=== PATIENT | male | born 1960 | race Caucasian/White ===

== ENCOUNTER 2019-07-28 10:07 | Emergency (ER) | payer MEDICAID ==
[~2019-07-28] VITALS: Ht 182.9 cm; Wt 123.0 kg
[~2019-07-28 10:07] MED LIST: ALBU18HF INH; FLUT1AER INH; LEVE100S6 PO; PROP80TA PO
--- NOTE | 2019-07-28 10:16 | NUR ---
HUNG. REPORT RECEIVED FROM EMS. PT WAS FOUND BY PD AROUND [facility]. PT WAS DC FROM [facility] YESTERDAY D/T THE SAME REASON. PT HAS SI WITH PLANS(TAKING BUNCH OF MEDS OR CUTTING HIMSELF). PT'S AOX4. RESPS EVEN AND UNLABORED. NO MEDICAL COMPLAINS. VSS.
--- NOTE | 2019-07-28 10:18 | NUR ---
PT'S BELONGGINGS PUT INTO 2 BAGS AND PUT INTO THE LOCKER. ROOM SECURE.
--- NOTE | 2019-07-28 10:48 | NUR ---
URINAL AT BEDSIDE. PT AWARES OF UA. CLAY LARES PROVIDED.
[2019-07-28 10:50] LABS: BASOPHILS # (AUTO) 0.01 x10^3/uL (0-0.1); BASOPHILS % (AUTO) 0 % (0-1); EOSINOPHILS # (AUTO) 0.12 x10^3/uL (0-0.4); EOSINOPHILS % (AUTO) 2 % (1-7); LYMPHOCYTES # (AUTO) 1.05 x10^3/uL (1-3.4); LYMPHOCYTES % (AUTO) 14 % (22-44); MD NO; MEAN CORPUSCULAR HEMOGLOBIN 33.6 pg (27.5-34.5); MEAN CORPUSCULAR HGB CONC 33.4 g/dL (33.2-36.2); MEAN CORPUSCULAR VOLUME 100.6 fL (81-97); MEAN PLATELET VOLUME 8.8 fL (7.4-10.4); MONOCYTES # (AUTO) 0.49 x10^3/uL (0.2-0.8); MONOCYTES % (AUTO) 6 % (2-9); NEUTROPHILS # (AUTO) 5.92 x10^3/uL (1.8-6.8); NEUTROPHILS % (AUTO) 78 % (42-75); PLATELET COUNT 220 x10^3/uL (130-400); RED BLOOD COUNT 4.92 x10^6/uL (4.38-5.82); RED CELL DISTRIBUTION WIDTH 13.9 % (9.4-14.8)
[2019-07-28 11:00] LABS: ALANINE AMINOTRANSFERASE 29 U/L (12-78); ALBUMIN 3.5 g/dL (3.4-5.0); ANION GAP 8 mmol/L (5-15); CALCIUM 8.3 mg/dL (8.5-10.1); CHLORIDE 107 mmol/L (98-107); CREATININE 1.01 mg/dL (0.7-1.3); SALICYLATE LEVEL 2.7 mg/dL (2.8-20.0)
[2019-07-28 11:03] LABS: ALKALINE PHOSPHATASE 59 U/L (45-117); BILIRUBIN,TOTAL 0.8 mg/dL (0.2-1.0); TOTAL PROTEIN 7.2 g/dL (6.4-8.2)
--- NOTE | 2019-07-28 11:12 | NUR ---
patient report taken from LUIS F Samano. patient in bed, rails up. patient states he is really feeling depressed and suidical and requesting to see mental health. patient has sitter outside room and all objects of harm removed. patient lunch tray ordered.
[2019-07-28 11:15] LABS: MICROSCOPIC NOT IND
[2019-07-28 11:27] LABS: CULTURE INDICATED? NO
[2019-07-28 11:28] LABS: AMPHETAMINE SCREEN, URINE Negative (Negative); BARBITURATE SCREEN, URINE Negative (Negative); BENZODIAZEPINE SCREEN, URINE Negative (Negative); CANNABINOID SCREEN, URINE Negative (Negative); COCAINE SCREEN, URINE Negative (Negative); METHADONE SCREEN, URINE Negative (Negative); OPIATE SCREEN, URINE Negative (Negative)
--- NOTE | 2019-07-28 12:16 | NUR ---
THROUGHPUT: TELEPSYCH PAGED.
--- NOTE | 2019-07-28 12:45 | NUR ---
PATIENT GIVEN TRAY AND HAS GREAT APPETITE. TELEPSYCH IN ROOM AWAITING CALL
--- NOTE | 2019-07-28 13:09 | NUR ---
talked to Dr. Nieves for tele psych eval.
--- NOTE | 2019-07-28 13:50 | NUR ---
telepsych md requesting patient's phone to find family to discuss situation with. from [facility] got four large dirty plastic bags one by one supervised to patient to retreive phone but patient couldn't locate phone and is getting upset and worked up about it. alerted charge and will hold off on search for phone at this time to allow patient to relax.
--- NOTE | 2019-07-28 14:17 | NUR ---
TASK RN: PT SITTING UP IN [place], AWAKE/ALERT. NAD NOTED. ROOM SECURE. SITTER PRESENT.
--- NOTE | 2019-07-28 14:49 | NUR ---
patient calm and resting
--- NOTE | 2019-07-28 15:00 | NUR ---
report to Carol ARTIS. patient in bed, no objects of harm. sitter. calm
--- NOTE | 2019-07-28 15:11 | NUR ---
REPORT FROM LUIS F WESLEY. PT RESTING QUIETLY IN ROOM. ROOM SECURE. SITTER PRESENT.
--- NOTE | 2019-07-28 15:32 | NUR ---
PT TO BE ADMITTED PER SOC RECOMMENDATION. TP RN MADE AWARE.
--- NOTE | 2019-07-28 15:40 | NUR ---
PER REYES AT 3E, PATIENT NOT ACCEPTED DUE TO INSURANCE.
--- NOTE | 2019-07-28 15:55 | NUR ---
Tiffany Morrow technical supervisor denied patient as well.
--- NOTE | 2019-07-28 16:55 | NUR ---
PT PROVIDED SI COMPLIANT MEAL TRAY
--- NOTE | 2019-07-28 17:12 | NUR ---
THROUGHPUT: [facility]. FAX CONFIRMATION RECEIVED.
--- NOTE | 2019-07-28 17:27 | NUR ---
PATIENT DENIED FROM [facility] INSURANCE BEING [place] [employer]
--- NOTE | 2019-07-28 17:39 | NUR ---
PT RESTING IN GURNEY W/ EYES CLOSED. EVEN RESPIRATIONS NOTED. SITTER PRESENT
--- NOTE | 2019-07-28 18:01 | NUR ---
HOSPITAL BED REQUESTED FROM HOUSE KEEPING
--- NOTE | 2019-07-28 18:12 | NUR ---
PT REPORTS ANXIETY AND DEPRESSION BUT "ACTUALLY GETTING MUCH BETTER". VS COMPLETE. PT CALM, COMPLIANT AND A PLEASURE TO SPEAK WITH. WHEN ASKED IF HE WAS STILL FEELING SUICIDAL, PT STATES "WELL THAT DEPENDS, IF YOU'RE GOWING TO THROW ME OUT ON THE STREETS THEN I AM FEELING VERY SUICIDAL". PT AWARE OF ADMIT ORDERS AND IS REQUESTING TO BE SENT TO [facility], "THEY HELPED ME A LOT LAST TIME". PT MADE AWARE OF ADMIT PROCESS AND RESTRICTIONS CONSIDERING INSURANCE AND DEMONSTRATES UNDERSTANDING. PT DENIES NEEDS. UNABLE TO UPDATED MEDICAL RECORD PT STATES, "I TAKE LIKE TWELVE PILLS. I CAN'T LIST THEM ALL". ROOM REMAINS SECURE. SITTER PRESENT. AWAITING HOSPITAL BED.
--- NOTE | 2019-07-28 19:01 | NUR ---
REPORT TO LUIS F PAREDES
--- NOTE | 2019-07-28 19:53 | NUR ---
Received report from LUIS F Covarrubias. Updated on reason for patient's hold. Patient sleeping in room, chest rise and fall observable from hallway. Sitter in line of sight within arms reach. Assuming lack of needs due to appearance of sleeping comfortably.
--- NOTE | 2019-07-28 22:05 | NUR ---
Gave report to LUIS F Villela. Included patient's recent psychiatric symptoms. Recent assessment and lack of needs at this time. All questions answered.
--- NOTE | 2019-07-29 05:38 | NUR ---
PT SLEEPING IN BED, PT HAS A SITTER AT PT DOOR. PT ROOM IS SECURED WITH SI PRECAUTIONS. PT DENIED ANY NEEDS AT THIS TIME.
--- NOTE | 2019-07-29 06:55 | NUR ---
Received report from LUIS F Villela. All questions answered. Assuming care of pt at this time. Pt resting asleep on gurney supine. Pt has unlabored respirations with even chest rise and fall. NADN. Sitter near doorway in direct line of sight for observation. No needs expressed at this time. Breakfast tray ordered.
--- NOTE | 2019-07-29 08:01 | NUR ---
Offered pt hospital bed. Pt decliend at this time. Obtained vital signs. Pt states SI at this time. Pt states plan is to "choke myself with something". Pt remains on SI precuations with sitter in direct line of sight for observation.
--- NOTE | 2019-07-29 08:03 | NUR ---
Pt unable to verify any other home medications other than what is listed in the med rec. Pt is poor historian.
--- NOTE | 2019-07-29 08:45 | NUR ---
preparatory technician provided pt hospital bed per pt's request at this time. Pt appreciative. Pt provided breakfast tray. NADN. No other needs expressed. Sitter near pt doorway in direct line of sight for observation.
--- NOTE | 2019-07-29 10:55 | NUR ---
Provided report to LUIS F Mir. All questions answered. LUIS F Mir to assume care of pt at this time.
--- NOTE | 2019-07-29 10:55 | NUR ---
LATE NOTE ENTRY FOR 929: Pt eating breakfast tray. Pt appreciative. No other needs expressed at this time. Sitter near doorway in direct line of sight for observation.
--- NOTE | 2019-07-29 10:56 | NUR ---
lunch tray ordered.
--- NOTE | 2019-07-29 11:05 | NUR ---
REPORT FROM MARION KERNS PATIENT RESTING COMFORTABLY ON HOSPITAL BED FULL ASSESSMENT TO FOLLOW
--- NOTE | 2019-07-29 12:00 | NUR ---
RESTING COMFORTABLY ON HOSPITAL BED (SLEEPING) SITTER WITHIN DIRECT EYELINE
--- NOTE | 2019-07-29 12:18 | NUR ---
Ate maybe 1/5th of lunch, drinking water With assessment reports "Yeah i still feel like killing myself by hanging. because i feel like everything is falling apart. my family won't talk to me me, my girlfriend left, etc..." Speedboat Driver spent roughly 10 minutes with patient allowing him to vent. I then clarified poc aligner typewriter attempted to complete med recc- patient unsure of meds-reports "the bottles are in my bag."Speedboat Driver to investigate shortly Sitter near doorway in direct line of sight for observation. remains a legal hold
--- NOTE | 2019-07-29 13:00 | NUR ---
RESTING COMFORTABLY ON HOSPITAL BED SITTER WITHIN DIRECT EYELINE
--- NOTE | 2019-07-29 14:00 | NUR ---
RESTING COMFORTABLY ON HOSPITAL BED (SLEEPING) SITTER WITHIN DIRECT EYELINE
--- NOTE | 2019-07-29 15:00 | NUR ---
RESTING COMFORTABLY ON HOSPITAL BED (SLEEPING) SITTER WITHIN DIRECT EYELINE
--- NOTE | 2019-07-29 16:00 | NUR ---
RESTING COMFORTABLY ON HOSPITAL BED (SLEEPING) SITTER WITHIN DIRECT EYELINE
--- NOTE | 2019-07-29 16:23 | NUR ---
Belongings searched for reported meds-no pill bottles found in either of patient belong bag(s) (in contrast to patient report) med recc updated dinner tray ordered
--- NOTE | 2019-07-29 17:24 | NUR ---
RESTING COMFORTABLY ON HOSPITAL BED (SLEEPING) SITTER WITHIN DIRECT EYELINE
--- NOTE | 2019-07-29 18:16 | NUR ---
ate 2/5th's of dinner. Then fell back asleep Sitter w/in direct eyeline
--- NOTE | 2019-07-29 18:50 | NUR ---
Report to Letty KERNS
--- NOTE | 2019-07-29 20:05 | NUR ---
Assumed care from LUIS F Mir. Pt awake in bed . Cooperative with assessment maintaining good eye contact. Endorsed depression and SI with plan to hang himself. Pt denied any HI, hallucinations or anxiety . Pt presents disheveled with flat affect. Sitter in doorway.
[2019-07-29] MEDS ORDERED: HYDROXYZINE PAMOATE 50MG CAP PO PRN (21:00)
[2019-07-29] MEDS ORDERED: DOXEPIN 25 MG CAPSULE PO PRN (21:00)
--- NOTE | 2019-07-29 22:07 | NUR ---
Medication adminstered, pt compliant. Sitter doorway for safety.
--- NOTE | 2019-07-29 22:29 | NUR ---
TP RN: CONTACTED [facility] FOR FOLLOW UP ON ACCEPTANCE. RN STATES "I AM NOT THE NORMAL NURSE WHO WORKS ON THIS UNIT. THE ADMITTING NURSE WILL BE ON TOMORROW, SO YOU WILL HAVE TO CALL BACK THEN"
--- NOTE | 2019-07-29 23:42 | NUR ---
PT laying on gurney with eyes closed. Respiration evena nd unlabored. Sitter in doorway in line of sight for observation.
--- NOTE | 2019-07-30 01:03 | NUR ---
Pt resting with eyes closed . Breathing even and unlabored with even rise and fall of chest. Sitter near doorway in line of sight for observation.
--- NOTE | 2019-07-30 02:44 | NUR ---
Pt resting comfortably. Risperation even and unlabored. Sitter near doorway in direct line of sight for observation.
--- NOTE | 2019-07-30 04:19 | NUR ---
Pt resting comfortably . Respiration even and unlabored. Sitter in doorway in direct line of sight for observation.
--- NOTE | 2019-07-30 06:23 | NUR ---
Pt resting comfortably with eyes closed with no apparent distress. Respiration even and unlabored. Sitter near door in direct line of sight for observation.
--- NOTE | 2019-07-30 07:08 | NUR ---
SBAR REPORT RECIEVED FROM RN JOVANNI. PATIENT IS RESTING IN BED IN SUICIDE SECURED ROOM. EQUAL CHEST RISE. SITTER OUTSIDE DOOR. BREAKFAST ORDERED. PATIENT BELONGING COLLECTED AND SECURED BY PREVIOUS RN. AWAITING PLACEMENT AT [facility] FACILITY.
--- NOTE | 2019-07-30 08:42 | NUR ---
PAITIENT RESTING IN HOSPITAL BED IN SUICIDE SECURED ROOM WITH SITTER AT DOORWAY.
--- NOTE | 2019-07-30 09:35 | NUR ---
PATIENT IS SLEEPING IN HOSPITAL BED IN SUICIDE SECURED ROOM WITH A SITTER OUTSIDE THE DOOR
[2019-07-30 11:21] VITALS: BP 142/78
--- NOTE | 2019-07-30 11:23 | NUR ---
PATIENT RESTING IN HOSPITAL BED IN SUICIDE SECURED ROOM WITH A SITTER OUTSIDE THE DOOR. PATIENT STATES HIS BP OF 142/78 IS HIGH FOR HIM AND THAT HE USUALLY TAKES 20MG OF LISINOPRIL IN THE MORNING. LOOKED THROUGH PATIENT BELONGINGS AND WAS NOT ABLE TO FIND ANY RX. HE STATED THAT "THE POLICE MAY HAVE LOST IT BECAUSE I HAD IT WHEN THEY PICKED ME UP". WILL UPDATE MED REC AND NOTIFY .
--- NOTE | 2019-07-30 12:41 | NUR ---
PATIENT GIVEN LUNCH IN HOSPITAL BED IN SUICIDE SECURED ROOM WITH A SITTER AT DOORWAY. REPORT GIVEN TO ERNIE KERNS, PATIENT ACCEPTED BY DR. BRANDT AT [facility]. AWAITING [facility] TRANSPORT. MEDICATIONS FOUN Addendum: 07/30/19 at 1243 by [facility] MEDICATIONS HAD BEEN STORED IN PHARMACY. MEDICATIONS RETREIVED AND TO BE GIVEN TO [facility] FOR TRANSPORT TO [facility].
--- NOTE | 2019-07-30 13:33 | NUR ---
PATIENT RESTING IN HOSPITAL BED IN SUICIDE SECURED ROOM WITH SITTER IN DOORWAY. AWAITING [facility].
--- NOTE | 2019-07-30 13:48 | NUR ---
TASK RN: FIRST CONTACT WITH PT. BRITTANY transporting pt from ED to [facility]. Pt left with all personal belongings. Pt ambulatory with steady gait and balance. NADN. Patient given discharge instructions and they have confirmed that they understand the instructions.
--- NOTE | 2019-08-04 14:37 | NUR ---
IC DESIGN MANAGER: PT CALLED FROM [facility] LOOKING FOR HIS BELONGINGS. I LOCATED 2 BAGS OF BELONGINGS WITH THE PATIENTS LABEL ON THEM IN THE BELONGINGS LOCKER. PT WAS INFORMED THAT WE WOULD BE SENDING THE BAGS TO [facility] VIA [facility] DELIVERY TO THE INTAKE AREA
== END 2019-07-30 13:50 ==
LOC: ED 11:57
DX: R45.851 Suicidal ideations (principal); I10 Essential (primary) hypertension; J44.9 Chronic obstructive pulmonary disease, unspecified; G40.909 Epilepsy, unspecified, not intractable, without status epilepticus; F32.9 Major depressive disorder, single episode, unspecified
CPT/HCPCS: 36415; 80053; 80307; 81003; 85025; 99285

== ENCOUNTER 2019-09-01 22:14 | Emergency (ER) | payer MEDICAID ==
[~2019-09-01] VITALS: Ht 188 cm; Wt 113.6 kg
[2019-09-01 22:20] VITALS: BP 145/78
--- NOTE | 2019-09-01 22:30 | NUR ---
BIB [facility]. SI W/PLAN TO STRANGLE USING SHEET. X2 ATTEMPTS WITHIN 3 MONTHS. DC'D FROM [facility]PROX 2 WEEKS AGO. PT STATES COMPLIANT WITH MEDS. STAYING IN [facility] UNTIL TODAY. NO WHERE TO GO. NO MONEY. FROM [place]. LIVING IN [place] FOR 2 MONTHS. WANTS TO GO BACK TO [place]. 5 BAGS IN LOCKER. ROOM SECURED. SITTER AT DOOR.
[2019-09-01 22:55] LABS: BASOPHILS # (AUTO) 0.03 x10^3/uL (0-0.1); BASOPHILS % (AUTO) 0 % (0-1); EOSINOPHILS # (AUTO) 0.17 x10^3/uL (0-0.4); EOSINOPHILS % (AUTO) 2 % (1-7); LYMPHOCYTES # (AUTO) 2.34 x10^3/uL (1-3.4); LYMPHOCYTES % (AUTO) 33 % (22-44); MD NO; MEAN CORPUSCULAR HEMOGLOBIN 33.5 pg (27.5-34.5); MEAN CORPUSCULAR HGB CONC 34.1 g/dL (33.2-36.2); MEAN CORPUSCULAR VOLUME 98.2 fL (81-97); MEAN PLATELET VOLUME 8.6 fL (7.4-10.4); MONOCYTES # (AUTO) 0.47 x10^3/uL (0.2-0.8); MONOCYTES % (AUTO) 7 % (2-9); NEUTROPHILS # (AUTO) 4.14 x10^3/uL (1.8-6.8); NEUTROPHILS % (AUTO) 58 % (42-75); PLATELET COUNT 224 x10^3/uL (130-400); RED BLOOD COUNT 4.98 x10^6/uL (4.38-5.82); RED CELL DISTRIBUTION WIDTH 12.6 % (9.4-14.8)
[2019-09-01 23:04] LABS: ALANINE AMINOTRANSFERASE 66 U/L (12-78); ALBUMIN 3.3 g/dL (3.4-5.0); ANION GAP 5 mmol/L (5-15); CALCIUM 8.2 mg/dL (8.5-10.1); CHLORIDE 109 mmol/L (98-107); CREATININE 0.93 mg/dL (0.7-1.3); SALICYLATE LEVEL 3.4 mg/dL (2.8-20.0)
[2019-09-01 23:06] LABS: ALKALINE PHOSPHATASE 82 U/L (45-117); BILIRUBIN,TOTAL 0.2 mg/dL (0.2-1.0); TOTAL PROTEIN 7.3 g/dL (6.4-8.2)
[2019-09-01 23:06] LABS: AMPHETAMINE SCREEN, URINE Negative (Negative); BARBITURATE SCREEN, URINE Negative (Negative); BENZODIAZEPINE SCREEN, URINE Negative (Negative); CANNABINOID SCREEN, URINE Negative (Negative); COCAINE SCREEN, URINE Negative (Negative); METHADONE SCREEN, URINE Negative (Negative); OPIATE SCREEN, URINE Negative (Negative)
--- NOTE | 2019-09-01 23:17 | NUR ---
Note ivaone in ED - 09/01/19 at 2320 by MARISOL [facility] RETURN PHONE CALL; NO CELL PHONE WAS FOUND ON THE AMBULANCE. PT. UPDATED ON THIS. PT. RESTING ON GURNEY WITH NO DISTRESS NOTED. AWAITING DISPO. Addendum: 09/01/19 at 2319 by MARISOL Amendment arianna in ED - 09/01/19 at 2320 by MARISOL PREVIOUS NOTE ENTERED ON WRONG PT.
[2019-09-01] MEDS ORDERED: LORazepam 1MG TABLET PO ONE (23:30)
[2019-09-02] MEDS ORDERED: LORazepam 1MG TABLET ONE (00:05)
--- NOTE | 2019-09-02 00:44 | NUR ---
SOC MD REPORT GIVEN. VIDEO IN PROGRESS.
--- NOTE | 2019-09-02 01:18 | NUR ---
PT. GIVEN BACK BELONGINGS AND ABLE TO FULLY DRESS SELF AND AMBULATE TO D/C DESK WITH STEADY GAIT. PROVIDED WITH CAB VOUCHER FOR SAFE D/C. PT. TO F/U WITH OUTPATIENT PSYCH CARE TOMORROW.
== END 2019-09-02 01:18 ==
LOC: ED 09-02 01:12
DX: F32.9 Major depressive disorder, single episode, unspecified (principal); R45.851 Suicidal ideations; F10.239 Alcohol dependence with withdrawal, unspecified; I10 Essential (primary) hypertension; J44.9 Chronic obstructive pulmonary disease, unspecified; G40.909 Epilepsy, unspecified, not intractable, without status epilepticus; F17.210 Nicotine dependence, cigarettes, uncomplicated; Y90.9 Presence of alcohol in blood, level not specified
CPT/HCPCS: 36415; 80053; 80307; 85025; 99284

== ENCOUNTER 2019-09-17 12:46 | Emergency (ER) | payer MEDICAID ==
[~2019-09-17] VITALS: Ht 182.9 cm; Wt 100.0 kg
[2019-09-17 14:14] LABS: BASOPHILS # (AUTO) 0.03 x10^3/uL (0-0.1); BASOPHILS % (AUTO) 0 % (0-1); EOSINOPHILS % (AUTO) 2 % (1-7); LYMPHOCYTES # (AUTO) 1.45 x10^3/uL (1-3.4); LYMPHOCYTES % (AUTO) 11 % (22-44); MD NO; MEAN CORPUSCULAR HEMOGLOBIN 33.4 pg (27.5-34.5); MEAN CORPUSCULAR HGB CONC 33.4 g/dL (33.2-36.2); MEAN CORPUSCULAR VOLUME 99.9 fL (81-97); MEAN PLATELET VOLUME 8.9 fL (7.4-10.4); MONOCYTES % (AUTO) 4 % (2-9); NEUTROPHILS # (AUTO) 10.84 x10^3/uL (1.8-6.8); NEUTROPHILS % (AUTO) 83 % (42-75); PLATELET COUNT 215 x10^3/uL (130-400); RED BLOOD COUNT 4.97 x10^6/uL (4.38-5.82); RED CELL DISTRIBUTION WIDTH 14.8 % (9.4-14.8)
[2019-09-17 14:22] LABS: ALBUMIN 3.4 g/dL (3.4-5.0); ANION GAP 5 mmol/L (5-15); CALCIUM 8.8 mg/dL (8.5-10.1); CHLORIDE 107 mmol/L (98-107); CREATININE 0.94 mg/dL (0.7-1.3)
--- NOTE | 2019-09-17 14:34 | NUR ---
Inventory 5 belonging bags placed in locker labeled and numbered 1-5. Additional Bag taken to Security as it is his wallet with $75 in daily & has DL & 1 VISA CARD
[2019-09-17 15:09] LABS: AMPHETAMINE SCREEN, URINE Negative (Negative); BARBITURATE SCREEN, URINE Negative (Negative); BENZODIAZEPINE SCREEN, URINE Negative (Negative); CANNABINOID SCREEN, URINE Negative (Negative); COCAINE SCREEN, URINE Negative (Negative); METHADONE SCREEN, URINE Negative (Negative); OPIATE SCREEN, URINE Negative (Negative)
--- NOTE | 2019-09-17 17:04 | NUR ---
BREATHALYZER 0.00 PSYCHIATRY FAMILY RESOURCE COORDINATOR AT BEDSIDE
--- NOTE | 2019-09-17 17:18 | NUR ---
PSYCHIATRY ACCOUNT OFFICER AT BEDSIDE
--- NOTE | 2019-09-17 17:35 | NUR ---
THROUGHPUT RN: KIM DECLINED PT DUE TO INSURANCE.
[2019-09-17] MEDS ORDERED: HYDR25CA94 PO (17:58)
[2019-09-17] MEDS ORDERED: LISI-170 PO (17:58)
[2019-09-17] MEDS ORDERED: QUET300T5 PO (17:58)
[2019-09-17] MEDS ORDERED: TRAZ50TA66 PO (17:58)
[2019-09-17] MEDS ORDERED: ESCI20TA PO (17:58)
[2019-09-17] MEDS ORDERED: LEVE500T22 PO (17:58)
[2019-09-17] MEDS ORDERED: PROPRANOLOL 10 MG TABLET PO PRN (18:00)
[2019-09-17] MEDS ORDERED: TRAZODONE 50MG TABLET ONE (18:04)
--- NOTE | 2019-09-17 18:06 | NUR ---
Ordered anxiety medicines from pharmacy
--- NOTE | 2019-09-17 18:17 | NUR ---
THROUGHPUT RN: [facility], AND [facility].
--- NOTE | 2019-09-17 18:47 | NUR ---
MEDICATED PER EMAR
--- NOTE | 2019-09-17 19:00 | NUR ---
Report to Nel garcia ER Provider asked for order for home keppra/seroquel
--- NOTE | 2019-09-17 19:29 | NUR ---
REPORT RECEIVED FROM LUIS F HYATT. PT RESTING ON HOSPITAL BED WATCHIN TV. ALL PT NEEDS MET AT THIS TIME. ROOM [facility], SITTER IN HALLWAY WITHIN LINE OF SIGHT.
[2019-09-17] MEDS ORDERED: TEMPLATE NON-FORMULARY MED. (Quetiapine Fumarate** (Seroquel**) 300 MG) PO PRN (20:00)
[2019-09-17] MEDS ORDERED: TRAZODONE 100MG TABLET PO SCH (21:00)
[2019-09-17] MEDS ORDERED: LEVETIRACETAM 500 MG TABLET ONE (21:04)
[2019-09-17] MEDS ORDERED: QUETIAPINE 100MG TABLET ONE ×2 (21:04→21:07)
[2019-09-17] MEDS: LEVETIRACETAM 500 MG TABLET PO SCH (21:08)
[2019-09-17] MEDS: QUETIAPINE 100MG TABLET PO SCH (21:08)
--- NOTE | 2019-09-17 21:57 | NUR ---
PT RESTING ON HOSPITAL BED WATCHING TV. RESPIRATIONS EVEN AND UNLABORED. ROOM SECURED, SITTER IN HALLWAY, ALL NEEDS MET AT THIS TIME. WATER AND BLANKET PROVIDED.
--- NOTE | 2019-09-17 22:54 | NUR ---
PT RESTING ON HOSPITAL BED, PROVIDED WATER UPON REQUEST. PT CALM AND COOPERATIVE. NO DISTRESS REPORTED. PT DENIES ANY C/O AT THIS TIME OTHER THAN EMOTIONAL STATE.
--- NOTE | 2019-09-18 00:14 | NUR ---
PT RESTING ON HOSPITAL BED WITH EYES CLOSED. RESPIRATIONS EVEN AND UNLABORED. PT PROVIDED JUICE AND CRACKERS UPON REQUEST. NO FURTHER NEEDS AT THIS TIME. ROOM SECURED, SITTER IN HALLWAY WITHIN LINE OF SIGHT.
--- NOTE | 2019-09-18 01:56 | NUR ---
PT RESTING ON HOSPITAL BED WITH EYES CLOSED. RESPIRATIONS EVEN AND UNLABORED. ROOM SECURED SITTER IN HALLWAY WITHIN LINE OF SIGHT.
--- NOTE | 2019-09-18 04:40 | NUR ---
POST DOWNTIME: SEE PAPER CHART
--- NOTE | 2019-09-18 05:39 | NUR ---
PT RESTING ON HOSPITAL BED WITH EYES CLOSED. RESPIRATIONS EVEN AND UNLABORED. ROOM SECURED, SITTER IN HALLWAY WITHIN LINE OF SIGHT OF PT.
--- NOTE | 2019-09-18 07:02 | NUR ---
REPORT FROM ZOYA. PT RESTING, BREAKFAST TRAY ORDERED. SITTER PRESENT
--- NOTE | 2019-09-18 07:04 | NUR ---
REPORT GIVEN TO LUIS F BRADY.
[2019-09-18] MEDS ORDERED: CEPHALEXIN 500 MG CAPSULE ONE (08:15)
--- NOTE | 2019-09-18 08:24 | NUR ---
PROVIDED BREAKFAST TRAY. PT SATES HE FEEL TIRED BUT SLEPT. STILL HAVING THOUGHTS OF SI. MOOD IS FLAT. VS SIGNS COMPLETE
[2019-09-18] MEDS: ESCITALOPRAM 10MG TABLET PO SCH (08:42)
[2019-09-18] MEDS: LEVETIRACETAM 500 MG TABLET PO SCH ×2 (08:42→19:48)
--- NOTE | 2019-09-18 08:48 | NUR ---
REPORT FROM LUIS F MARTINI
--- NOTE | 2019-09-18 14:40 | NUR ---
PT RESTING IN BED, SITTER IN DIRECT LINE OF SIGHT. DENIES ANY NEEDS OR CONCERNS AT THIS TIME.
--- NOTE | 2019-09-18 15:40 | NUR ---
pt resting. no needs at this time. meal tray given
--- NOTE | 2019-09-18 16:40 | NUR ---
PT RESTING. NO NEEDS AT THIS TIME. SITTER PRESENT
--- NOTE | 2019-09-18 17:30 | NUR ---
PT SLEEPING. NO NEEDS AT THIS TIME. GIVEN WATER
[2019-09-18] MEDS ORDERED: LEVETIRACETAM 500 MG TABLET ONE (19:44)
[2019-09-18] MEDS ORDERED: QUETIAPINE 100MG TABLET ONE (19:44)
[2019-09-18] MEDS ORDERED: TRAZODONE 50MG TABLET ONE (19:44)
[2019-09-18] MEDS: QUETIAPINE 100MG TABLET PO SCH (19:48)
--- NOTE | 2019-09-18 20:00 | NUR ---
RN received report from diurnal RN, reviewed patients current complaint. Patient resting comfortably asking for water. Water provided. Patient resting comfortably at this time, assumed patient care. RN returned at 1950 and updated vitals. Vital signs stable (see vital signs flowsheet.) Patient provided with scheduled medications and pro re emiyl sleeping medication. Patient calm and comfortable. Sitter in hallway within two steps of patient. Awaiting placement in [facility]
[2019-09-18] MEDS ORDERED: TRAZODONE 50MG TABLET PO PRN (21:00)
--- NOTE | 2019-09-19 01:23 | NUR ---
Patient asleep, lights dimmed, can visualize breathing movements from door. Sitter in hallway two steps from patient.
--- NOTE | 2019-09-19 07:03 | NUR ---
REPORT RECIEVED FROM REGGIE KERNS. PATIENT SLEEPING IN BED, SAFETY PRECAUTIONS IN PLACE.
[2019-09-19 08:26] VITALS: BP 126/80
--- NOTE | 2019-09-19 08:28 | NUR ---
MEAL PROVIDED, SAFETY PRECAUTOINS IN PLACE
[2019-09-19] MEDS ORDERED: LEVETIRACETAM 500 MG TABLET ONE (08:34)
[2019-09-19] MEDS: LEVETIRACETAM 500 MG TABLET PO SCH (08:54)
[2019-09-19] MEDS: ESCITALOPRAM 10MG TABLET PO SCH (08:54)
--- NOTE | 2019-09-19 09:53 | NUR ---
THROUGHPUT RN: SPOKE W/ ERNIE FROM [facility]. NO ADMIT CAPABILITY TODAY.
--- NOTE | 2019-09-19 11:12 | NUR ---
REPORT GIVEN TO ERNIE FROM [facility]. PATIENT RESTING IN BED, SAFETY PRECAUTIONS IN PLACE.
--- NOTE | 2019-09-19 12:13 | NUR ---
MEAL TRAY PROVIDED, SAFETY PRECAUTIONS IN PLACE. PT AWARE OF TRANSFER.
--- NOTE | 2019-09-19 12:30 | NUR ---
REPORT GIVEN TO [facility] FOR TRANSPORT TO [facility]. BELONGING FROM SECURITY AND LOCKER GIVEN TO [facility]-4 BAGS AND ONE SEALED ENVELOPE
== END 2019-09-19 12:34 ==
LOC: ED 15:31
DX: F32.9 Major depressive disorder, single episode, unspecified (principal); R45.851 Suicidal ideations; J44.9 Chronic obstructive pulmonary disease, unspecified; I10 Essential (primary) hypertension; F17.200 Nicotine dependence, unspecified, uncomplicated
CPT/HCPCS: 36415; 80048; 80307; 82040; 85025; 99285